=== PATIENT | male | born 1940 | race Caucasian/White ===

== ENCOUNTER 2019-03-31 07:20 | Inpatient (IN) | payer MEDICARE, OTHER ==
[~2019-03-31] VITALS: Ht 172.7 cm; Wt 99.9 kg
[~2019-03-31 07:20] MED LIST: AMLO5 PO; Avodart0.5 MG; CELE200 PO; CLOB.05TC TOP; DOXA2 PO; DOXA4 PO; DUTA.5 PO; ESCI10 PO; HYDR1TAB94 PO; LORA.5 PO; Lisinopril2.5 MG; NYSTRITC TOP; OMEP20ER PO; Percocet 5-3251 EACH PO
[2019-03-31 08:02] LABS: BASOPHILS ABSOLUTE AUTO 0.04 K/mm3 (0.00-0.23); BASOPHILS PERCENT AUTO 0 % (0-2); EOSINOPHILS PERCENT AUTO 0 % (0-6); Hematocrit 32.9 % (37.0-53.0); Hemoglobin 11.9 g/dL (13.5-17.5); IMMATURE GRAN ABSOLUTE AUTO 0.03 K/mm3 (0.00-0.10); IMMATURE GRAN PERCENT AUTO 0 % (0-1); LYMPHOCYTES ABSOLUTE AUTO 0.87 K/mm3 (0.84-5.20); LYMPHOCYTES PERCENT AUTO 9 % (21-46); MONOCYTES PERCENT AUTO 7 % (4-13); Mean Corpuscular HGB 34.1 pg (26.0-34.0); Mean Corpuscular HGB Conc 36.2 g/dL (31.5-36.5); Mean Corpuscular Volume 94 fL (80-100); Mean Platelet Volume 9.3 fL (9.1-12.4); NEUTROPHILS ABSOLUTE AUTO 8.39 K/mm3 (1.96-9.15); NEUTROPHILS PERCENT AUTO 84 % (41-73); Platelet Count 192 K/mm3 (150-400); RDW Coefficient Variation 11.9 % (11.7-14.2); RDW Standard Deviation 41.1 fL (35.1-46.3); Red Blood Cell Count 3.49 M/mm3 (4.30-5.90); White Blood Cell Count 10.03 K/mm3 (4.00-11.30)
[2019-03-31 08:20] LABS: Source, Urine Clean Catch
[2019-03-31 08:24] LABS: Bilirubin, Urine Neg (Neg); Blood, Urine Neg (Neg); Glucose Qualitative, Urine Neg (Neg); Ketones, Urine 4+ (Neg); Leukocyte Esterase, Urine Neg (Neg); Nitrite, Urine Neg (Neg); Protein, Urine 1+ (Neg); Urobilinogen, Urine NORM (Normal)
[2019-03-31 08:25] LABS: Ethanol (Alcohol), Blood, Med <3 mg/dL
[2019-03-31 08:25] LABS: Appearance, Urine Clear (Clear); Color, Urine Yellow (P-Yellow)
[2019-03-31 08:27] LABS: Alanine Aminotransfer (ALT/SGP 67 U/L (12-78); Albumin/Globulin Ratio 1.2 (0.8-1.8); Alk Phos 63 U/L (50-136); Anion Gap 17 mmol/L (6-16); Aspartate Aminotrans (AST/SGOT 98 U/L (12-37); Bilirubin, Total 1.2 mg/dL (0.1-1.0); Blood Urea Nitrogen 18 mg/dL (8-24); Bun/Creatinine Ratio 20.4 (12.0-20.0); CO2, Blood 16 mmol/L (21-32); Calcium, Blood 8.3 mg/dL (8.5-10.1); Chloride, Blood 90 mmol/L (98-108); Creatinine, Blood 0.88 mg/dL (0.60-1.20); Globulin, Blood 3.3 g/dL (2.2-4.0); Glomerular Filtration Rate >60 (60-); Glucose, Blood 169 mg/dL (70-99); Potassium, Blood 4.3 mmol/L (3.5-5.5); Sodium, Blood 123 mmol/L (136-145); Total Protein, Blood 7.3 g/dL (6.4-8.2)
[2019-03-31 08:37] LABS: U Amphetamine Screen Not Detected; U Barbituate Screen Not Detected; U Benzodiazapine Screen DETECTED; U Buprenorphine Screen Not Detected; U Cannabinoids Screen Not Detected; U Cocaine Screen Not Detected; U Methadone Screen Not Detected; U Methamphetamine Screen Not Detected; U Opiates Screen Not Detected; U Oxycodone Screen Not Detected; U Phencyclidine Screen Not Detected; U Propoxyphene Screen Not Detected
[2019-03-31] MEDS ORDERED: PRINIVIL10 MG PO (08:49)
[2019-03-31 09:21] LABS: Bicarbonate Venous 21.4 mmol/L (24.0-30.0); PCO2 Venous 18.4 mmHg (38-42); PO2 Venous 147 mmHg (38-42); pH Blood Venous 7.56 (7.34-7.37)
[2019-03-31 09:47] LABS: Creatine Kinase MB 43.9 ng/mL (0.0-3.6)
[2019-03-31 09:57] LABS: Creatine Kinase MB Index 1.6 (0.0-4.0)
--- NOTE | 2019-03-31 13:51 | NUR ---
BP PT C/O SHAKING, CIWA SCORE 12, MEDICATED WITH ATIVAN PER ORDERS. BP 193/84, OTHER VSS.
--- NOTE | 2019-03-31 14:45 | NUR ---
PATIENT ADMITTED TO ICU 8 APPROX 1205 AFTER REPORT FROM FIONA ANGULO OF ED. C/O PAIN IN HIS NECK AND HAD CERVICAL SURGERY IN THE PAST. A&O, BUT SOME TREMORS NOTED. HIS ASSISTED WITH MEDICAL HISTORY. HYPERTENSIVE (SEE VITAL SIGNS). WELL ETOH USE, PATIENT TAKES ATIVAN BID AND ANTIDEPRESSENTS. LIBRIUM GIVEN PRIOR TO STARTING PRECEDEX. WORSENING TREMORS. ATIVAN GIVEN AND PRECEDEX STARTED AT 0.3 MCG/KG/HR AND TITRATED TO 0.7 MCG/KG/HR. PATIENT IS SLEEPING NOW. WILL BRING HOME CPAP IN
--- NOTE | 2019-03-31 15:45 | NUR ---
MD VISIT DR. MONTERO IN
[2019-03-31 17:02] LABS: Albumin, Blood 3.4 g/dL (3.4-5.0); Anion Gap 9 mmol/L (6-16); Blood Urea Nitrogen 16 mg/dL (8-24); CO2, Blood 23 mmol/L (21-32); Calcium, Blood 7.9 mg/dL (8.5-10.1); Chloride, Blood 93 mmol/L (98-108); Creatinine, Blood 0.89 mg/dL (0.60-1.20); Glomerular Filtration Rate >60 (60-); Glucose, Blood 139 mg/dL (70-99); Phosphorus, Blood 3.1 mg/dL (2.5-4.9); Potassium, Blood 3.8 mmol/L (3.5-5.5); Sodium, Blood 125 mmol/L (136-145)
--- NOTE | 2019-03-31 18:12 | NUR ---
BROUGHT IN HOME CPAP. RT NOTIFIED TO CHECK IT OUT FOR HOSPITAL USE.
--- NOTE | 2019-03-31 20:03 | NUR ---
ASSUMED CARE RECIEVED REPORT FROM BRADY JAIMES. PT IS ASLEEP, WITH OCCASIONAL SNORES AND IS HAVING SANDY. PT WILL BE PLACED ON CPAP. PT IS RECEIVING PRECEDEX 0.7MCG/KG/HGR AND NS AT 100ML/HR. URINAL AT BEDSIDE. WARM TOWELL AND K PAD UNDER NECK FOR CHRONIC PAIN. PT IS HYPERTENSIVE AND SLIGHLTY BRADYCARDIC BUT IS ASYMPTOMATIC. BED ALARM IS ON. NO FAMILY/VISITORS AT BEDSIE. BED IS LOW AND LOCKED, CALL LIGHT WITHIN REACH.
--- NOTE | 2019-04-01 02:50 | NUR ---
UPDATE PT AWAKE AT ~0200 NEEDING TO USE BEDSIDE COMMODE. PT HAD A SOILED GREEN SHEET AND HAD A DIARRHEAL STOOL. PT WAS ABLE TO TAKE A LIBRIUM, WHILE PRECEDEX REMAINS ON STANDBY. PT HAD A CIWA AROUND 2-3 DUE TO TREMORS IN THE UPPER EXTREMETIES. OTHERWISE PT IS NOT PRESENTING WITH MODERATE OR SEVERE SIGNS OF ETOH W/D. PT STATES PAIN IS RELIEVED WITH HEAT THERAPY. PT NOW HAS CPAP ON IS CURRENTLY BACK TO SLEEP. BED LOW AND LOCKED. CALL LIGHT WITHING REACH.
[2019-04-01 03:57] LABS: BASOPHILS ABSOLUTE AUTO 0.01 K/mm3 (0.00-0.23); BASOPHILS PERCENT AUTO 0 % (0-2); EOSINOPHILS ABSOLUTE AUTO 0.08 K/mm3 (0.00-0.68); EOSINOPHILS PERCENT AUTO 2 % (0-6); Hematocrit 31.6 % (37.0-53.0); Hemoglobin 11.2 g/dL (13.5-17.5); IMMATURE GRAN ABSOLUTE AUTO 0.01 K/mm3 (0.00-0.10); IMMATURE GRAN PERCENT AUTO 0 % (0-1); LYMPHOCYTES ABSOLUTE AUTO 1.17 K/mm3 (0.84-5.20); LYMPHOCYTES PERCENT AUTO 23 % (21-46); MONOCYTES ABSOLUTE AUTO 0.44 K/mm3 (0.16-1.47); MONOCYTES PERCENT AUTO 9 % (4-13); Mean Corpuscular HGB 34.6 pg (26.0-34.0); Mean Corpuscular HGB Conc 35.4 g/dL (31.5-36.5); Mean Platelet Volume 9.5 fL (9.1-12.4); NEUTROPHILS ABSOLUTE AUTO 3.31 K/mm3 (1.96-9.15); NEUTROPHILS PERCENT AUTO 66 % (41-73); Platelet Count 153 K/mm3 (150-400); RDW Coefficient Variation 12.2 % (11.7-14.2); RDW Standard Deviation 44.2 fL (35.1-46.3); Red Blood Cell Count 3.24 M/mm3 (4.30-5.90); White Blood Cell Count 5.02 K/mm3 (4.00-11.30)
[2019-04-01 03:58] LABS: Mean Corpuscular Volume 98 fL (80-100)
[2019-04-01 04:21] LABS: Anion Gap 8 mmol/L (6-16); Blood Urea Nitrogen 14 mg/dL (8-24); CO2, Blood 21 mmol/L (21-32); Calcium, Blood 7.8 mg/dL (8.5-10.1); Chloride, Blood 102 mmol/L (98-108); Creatinine, Blood 0.93 mg/dL (0.60-1.20); Glomerular Filtration Rate >60 (60-); Glucose, Blood 150 mg/dL (70-99); Potassium, Blood 3.8 mmol/L (3.5-5.5); Sodium, Blood 131 mmol/L (136-145)
[2019-04-01 04:36] LABS: CPK Creatine Kinase 1794 U/L (39-308)
--- NOTE | 2019-04-01 06:21 | NUR ---
SHIFT SUMMARY PT SLEPT FOR MAJORITY OF NIGHT; GOT UP TWICE FOR THE BATHROOM. PRECEDEX GTTP WAS TITRATED OFF, AND LIBRIUM WAS TAKEN WHEN HE WAS AWAKE. PT SWALLOWING FINE. PT DID NOT COMPLAIN ABOUT ANY PAIN ALL NIGHT, STATED THAT THE HEATED TOWELL AND K-PAD WORKED REALLY WELL. PT DENIED: NAUSEA, HEADACHE, ANXIETY, AND HALLUCINATIONS; PT ALSO WAS CALM AND COOPERATIVE WHEN AWAKE, SLIGHTLY DIAPHORETIC IN THE PALMS, ALERT AND ORIENTED X4, AND WAS TREMULOUS. CIWA OF 4 AROUND ~0200, PRECEDEX HAD BEEN TURNED OFF SO LIBRIUM WAS GIVEN. 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 HR HAD BEEN TRENDING DOWNWARD SINCE ADMISSION TO THE ICU; STARTED IN THE 80-LOW 90'S. CURRENTLY MID - HIGH 40'S. HR JUMPED BACK UP TO 50-60'S WHEN AWAKE. PT'S BP TRENDED DOWNWARD POST LISINOPRIL INTO A UPPER END OF NORMAL LEVEL. PT HAD A MODERATE DIARRHEAL STOOL WITH 900+UOP (900 + WHAT WAS IN THE STOOL). PT ON CPAP ALL NIGHT, TOLERATING IT WELL. BED IS LOW AND LOCKED. CALL LIGHT WITHIN REACH. NO FAMILY PRESENT OR PLACED A CALL.
--- NOTE | 2019-04-01 07:41 | NUR ---
ASSUMED CARE AT 0715 REPORT FROM FIONA URBINA. ASSISTED PATIENT TO BSC. UNMEASURED VOID AND EXPLOSIVE LIQUID STOOL. BATH AND LINEN CHANGED PROVIDED. OOB TO CHAIR FOR BREAKFAST. LIBRIUM GIVEN FOR CIWA 1-2 (TREMORS).
--- NOTE | 2019-04-01 07:46 | NUR ---
MD VISIT DR. MONTERO IN. STATUS WILL CHANGE TO PCU.
--- NOTE | 2019-04-01 12:17 | NUR ---
PATIENT REPORTS HE SUFFERS FROM IBS.
--- NOTE | 2019-04-01 13:05 | NUR ---
LIBRIUM GIVEN REQUESTED FOR TREMORS
--- NOTE | 2019-04-01 13:43 | NUR ---
PATIENT OOB FOR LUNCH AND BACK TO BED AFTER LIBRIUM WITH CPAP MASK ON FOR NAP.
--- NOTE | 2019-04-01 14:17 | NUR ---
REPORT TO FIONA TIM. PATIENT ASSISTED TO THE TOILET. WILL TX IN WC TO PCU 11 WITH MELISSA PEREZ
[2019-04-01 14:34] LABS: Adenovirus F 40/41 Not Detected (NOT DETECT); Astrovirus Not Detected (NOT DETECT); Campylobacter Sp Not Detected (NOT DETECT); Cryptosporidium Not Detected (NOT DETECT); Cyclospora Cayetanensis Not Detected (NOT DETECT); E. Coli O157 Not Detected (NOT DETECT); Entamoeba Histolytica Not Detected (NOT DETECT); Enteroaggregative E. coli-EAEC Not Detected (NOT DETECT); Enteropathogenic E. coli-EPEC Not Detected (NOT DETECT); Enterotoxigenic E. coli-ETEC Not Detected (NOT DETECT); Giardia Lamblia Not Detected (NOT DETECT); Norovirus GI/GII Not Detected (NOT DETECT); Plesiomonas Shigelloides Not Detected (NOT DETECT); Salmonella Sp Not Detected (NOT DETECT); Shiga Toxin-prod E. coli-STEC Not Detected (NOT DETECT); Shigella/Enteroin E. coli-EIEC Not Detected (NOT DETECT); Vibrio Cholerae Not Detected (NOT DETECT); Vibrio Sp Not Detected (NOT DETECT); Yersinia Enterocolitica Not Detected (NOT DETECT)
[2019-04-01 14:35] LABS: Rotavirus A Not Detected (NOT DETECT); Sapovirus Not Detected (NOT DETECT)
--- NOTE | 2019-04-01 18:01 | NUR ---
SHIFT SUMMARY. NO ACUTE CHANGES NOTED SINCE PT ARRIVED ON UNIT 1422. PT IS A&Ox4 AND SBA/IND IN THE ROOM. PT HAS CIWA PROTOCOL. PT HAS BEEN MEDICATED FOR PAIN AND CWIA PER EMAR/PROTOCOL. PT'S VS HAVE BEEN STABLE. NO EVENTS NOTED ON TELE. PT DENIES ANY CHEST PAIN/PRESSURE, N/V OR SOB. CALL LIGHT IN REACH, BED IS LOCKED AND LOW WILL CONTINUE TO MONITOR UNTIL REPORT IS GIVEN TO ONCOMING RN.
[2019-04-02 03:36] LABS: BASOPHILS ABSOLUTE AUTO 0.02 K/mm3 (0.00-0.23); BASOPHILS PERCENT AUTO 1 % (0-2); EOSINOPHILS PERCENT AUTO 2 % (0-6); Hematocrit 33.2 % (37.0-53.0); Hemoglobin 11.3 g/dL (13.5-17.5); IMMATURE GRAN ABSOLUTE AUTO 0.02 K/mm3 (0.00-0.10); IMMATURE GRAN PERCENT AUTO 1 % (0-1); LYMPHOCYTES ABSOLUTE AUTO 1.06 K/mm3 (0.84-5.20); LYMPHOCYTES PERCENT AUTO 25 % (21-46); MONOCYTES ABSOLUTE AUTO 0.42 K/mm3 (0.16-1.47); MONOCYTES PERCENT AUTO 10 % (4-13); Mean Corpuscular HGB 34.1 pg (26.0-34.0); Mean Corpuscular Volume 100 fL (80-100); Mean Platelet Volume 9.7 fL (9.1-12.4); NEUTROPHILS ABSOLUTE AUTO 2.58 K/mm3 (1.96-9.15); NEUTROPHILS PERCENT AUTO 61 % (41-73); Platelet Count 156 K/mm3 (150-400); RDW Coefficient Variation 12.5 % (11.7-14.2); RDW Standard Deviation 46.5 fL (35.1-46.3); Red Blood Cell Count 3.31 M/mm3 (4.30-5.90)
[2019-04-02 03:58] LABS: Albumin, Blood 3.2 g/dL (3.4-5.0); Anion Gap 6 mmol/L (6-16); Blood Urea Nitrogen 10 mg/dL (8-24); Bun/Creatinine Ratio 10.8 (12.0-20.0); CO2, Blood 25 mmol/L (21-32); Calcium, Blood 8.1 mg/dL (8.5-10.1); Chloride, Blood 107 mmol/L (98-108); Creatinine, Blood 0.92 mg/dL (0.60-1.20); Glomerular Filtration Rate >60 (60-); Glucose, Blood 140 mg/dL (70-99); Phosphorus, Blood 2.7 mg/dL (2.5-4.9); Potassium, Blood 4.3 mmol/L (3.5-5.5); Sodium, Blood 138 mmol/L (136-145)
[2019-04-02 04:06] LABS: CPK Creatine Kinase 1096 U/L (39-308)
--- NOTE | 2019-04-02 06:08 | NUR ---
SHIFT SUMMARY PT HAS REMAINED AOX4 THROUHGOUT SHIFT. VSS. PLEASANT AND COOPERATIVE WITH CARE. PT CONTINUES TO AMBULATE WITH STANDBY ASSIST TO RESTROOM WITHOUT DIFFICULTY. O2 SATS HAVE REMAINED >90% ON RA OR HOME ON HOME CPAP WHILE SLEEPING. PT HAS RESTED WELL THROUGHOUT THE NIGHT. MEDICATED FOR PAIN THAT DECREASES WITH ORDERED MEDICATIONS AND HEAT THERAPY ORDERED. INITIAL CIWA OF 9 LAST EVENING, PT MEDICATED FOR CIWA WITH GOOD RESULTS FROM MEDICATION. LAST NOTED CIWA OF 4 WHILE RESTING. NS CONTINUES TO INFUSE @ 100 ML/HR. NO OTHER CHANGES NOTED FROM INITIAL ASSESSMENT. WILL CONTINUE TO MONITOR AND REPORT TO ONCOMING SHIFT RN. BED IN LOW POSITION, CALL LIGHT IN REACH.
--- NOTE | 2019-04-02 09:36 | NUR ---
0705-ASSUMED CARE OF PT. PT IS ALERT AND ORIENTED. PT IS SITTING AT THE SIDE OF THE BED AT THIS TIME DRINKING HIS COFFEE. DENIES PAIN. 8031-PT WENT LAID BACK IN BED AT THIS TIME. DECREASED IV FLUIDS TO 50ML/HR ORDERED.
--- NOTE | 2019-04-02 16:12 | NUR ---
PT STATED " I HAVE NOT PUSHED THIS, BUT I REALLY WANT TO GO HOME. THERE'S NOTHING I AM DOING HERE THAT I CAN'T DO AT HOME." EXPLAINED TO PATIENT THAT IF HE INSIST ON GOING HOME, HE WILL GO HOME AGAINST MEDICAL ADVICE. ENCOURAGED PT TO STAY ANOTHER NIGHT. PT STATED THAT HE WILL STAY ANOTHER NIGHT BUT HE IS "GOING HOME TOMORROW." THIS INFORMATION WAS RELAYED TO DR. MONTERO, ORDERS RECEIVED TO TRANSFER PT TO MEDICAL FLOOR. SHE WAS ALSO NOTIFIED OF PT'S CIWA SCORE OF 2.
--- NOTE | 2019-04-02 19:25 | NUR ---
shift Summary: Pt is alert and oriented. Received to doses of librium, with CIWA score @ 2 the entire shift. Afebrile, eager to go home. Still on NS @ 50ml/hr.
--- NOTE | 2019-04-02 20:50 | NUR ---
CARE ASSUMPTION PT A&O X4. VSS. PT STATES BASELINE ANXIETY AND HAVING BEEN TAKING HIGH DOSES OF TYLENOL AND DRINKING "MORE THAN I SHOULD HAVE" TO MANAGE BACK AND NECK PAIN AT HOME. PT STATES UNDERSTANDING OF NEED FOR ALTERNATIVE PAIN RELIEF MEASURES. TIME SPENT DISCUSSING W/ PT ALTERNATIVE PAIN MANAGEMENT APPROACHES. PT SITTING UP AT EDGE OF BED, CIWA "0" AT THIS TIME. PT REPORTS BACK/NECK PAIN 4/10 AT THIS TIME. WILL CONTINUE TO MONITOR AND PROVIDE CARE.
[2019-04-03 03:59] LABS: BASOPHILS ABSOLUTE AUTO 0.03 K/mm3 (0.00-0.23); BASOPHILS PERCENT AUTO 1 % (0-2); EOSINOPHILS ABSOLUTE AUTO 0.15 K/mm3 (0.00-0.68); EOSINOPHILS PERCENT AUTO 4 % (0-6); Hematocrit 33.5 % (37.0-53.0); Hemoglobin 11.5 g/dL (13.5-17.5); IMMATURE GRAN ABSOLUTE AUTO 0.01 K/mm3 (0.00-0.10); IMMATURE GRAN PERCENT AUTO 0 % (0-1); LYMPHOCYTES ABSOLUTE AUTO 1.18 K/mm3 (0.84-5.20); LYMPHOCYTES PERCENT AUTO 29 % (21-46); MONOCYTES ABSOLUTE AUTO 0.47 K/mm3 (0.16-1.47); MONOCYTES PERCENT AUTO 11 % (4-13); Mean Corpuscular HGB 34.3 pg (26.0-34.0); Mean Corpuscular HGB Conc 34.3 g/dL (31.5-36.5); Mean Corpuscular Volume 100 fL (80-100); Mean Platelet Volume 9.7 fL (9.1-12.4); NEUTROPHILS PERCENT AUTO 56 % (41-73); Platelet Count 172 K/mm3 (150-400); RDW Coefficient Variation 12.4 % (11.7-14.2); RDW Standard Deviation 45.6 fL (35.1-46.3); Red Blood Cell Count 3.35 M/mm3 (4.30-5.90); White Blood Cell Count 4.14 K/mm3 (4.00-11.30)
[2019-04-03 04:24] LABS: Albumin, Blood 3.3 g/dL (3.4-5.0); Anion Gap 7 mmol/L (6-16); Blood Urea Nitrogen 9 mg/dL (8-24); Bun/Creatinine Ratio 10.8 (12.0-20.0); CO2, Blood 25 mmol/L (21-32); CPK Creatine Kinase 525 U/L (39-308); Calcium, Blood 8.6 mg/dL (8.5-10.1); Chloride, Blood 106 mmol/L (98-108); Creatinine, Blood 0.84 mg/dL (0.60-1.20); Glomerular Filtration Rate >60 (60-); Glucose, Blood 158 mg/dL (70-99); Phosphorus, Blood 3.6 mg/dL (2.5-4.9); Sodium, Blood 138 mmol/L (136-145)
--- NOTE | 2019-04-03 06:43 | NUR ---
SHIFT SUMMARY PT A&O X4, CALM AND COOPERATIVE W/ NO ANXIETY T/O SHIFT. PT REPORTS CHRONIC BACK AND NECK PAIN BEING "MILD" AND DENYING NEED FOR PAIN MEDICATION T/O SHIFT. PT CIWA REMAINS "0" T/O SHIFT. NO MEDICATION NEEDED. LUNG SOUNDS CLEAR, SPO2 > 92% ON RA OR HOME CPAP WHILE SLEEPING. PT AWAITING BED ON MEDICAL FLOOR OR POTENTIAL DISCHARGE HOME. WILL CONTINUE TO MONITOR AND PROVIDE CARE UNTIL REPORT OFF TO DAY SHIFT RN.
--- NOTE | 2019-04-03 08:12 | NUR ---
ASSUMED CARE PT ALERT AND ORIENTED. VS STABLE. PT DENIES ANY PAIN AT THIS TIME. DR. MONTERO IN THIS AM WITH PLANS FOR DISCHARGE. AWAITING ORDERS. PT NOTIFIED. WILL CONTINUE TO MONITOR.
--- NOTE | 2019-04-03 09:00 | NUR ---
DISCHARGE INSTRUCTIONS PROVIDED. ALL QUESTIONS ANSWERED. PT TAKEN OUT BY WHEELCHAIR.
== END 2019-04-03 09:06 | disposition home or self-care (01) | DRG 897 ==
LOC: ER 07:20 → ICUW 10:42 → ICUE 12:07 → PCU 04-01 14:22
PROVIDERS: Emergency Medicine; ADMIT Family Medicine
DX: F10.239 Alcohol dependence with withdrawal, unspecified (principal); M62.82 Rhabdomyolysis; E87.1 Hypo-osmolality and hyponatremia; E87.2 Acidosis; E83.42 Hypomagnesemia; D63.8 Anemia in other chronic diseases classified elsewhere; E86.0 Dehydration; G89.29 Other chronic pain; M54.2 Cervicalgia; I10 Essential (primary) hypertension; G47.30 Sleep apnea, unspecified; F32.9 Major depressive disorder, single episode, unspecified; Z88.2 Allergy status to sulfonamides; Z88.8 Allergy status to other drugs, medicaments and biological substances; Z91.040 Latex allergy status; Z79.899 Other long term (current) drug therapy; Z87.891 Personal history of nicotine dependence
CPT/HCPCS: 0097U; 36415; 71045; 80048; 80053; 80069; 82550; 82553; 82803; 82947; 83605; 83735; 84484; 85025; 93005; 93010; 96365; 96366; 96375; 96376; 99285-25; A9270-GY; G0480; J0360; J1650; J1885; J2060; J3010; J3411; J3475; J7030

== ENCOUNTER → 2021-02-23 | Outpatient (CLI) | payer MEDICARE, OTHER ==
[~2021-02-23] MED LIST changes: +PRINIVIL10 MG PO
== END | disposition home or self-care (01) ==
LOC: LAB 08:18 → LAB SHORT 08:18
DX: L72.8 Other follicular cysts of the skin and subcutaneous tissue (principal)
CPT/HCPCS: 88304

== ENCOUNTER → 2021-05-11 | Outpatient (CLI) | payer MEDICARE, OTHER | END | disposition home or self-care (01) | LOC: LAB SHORT 08:12 | DX: L11.0 Acquired keratosis follicularis (principal) | CPT/HCPCS: 88305 ==

== ENCOUNTER → 2022-01-10 | Outpatient (CLI) | payer MEDICARE, OTHER | LOC: LAB SHORT 11:07 | DX: L57.0 Actinic keratosis (principal) | CPT/HCPCS: 88305 ==

== ENCOUNTER → 2023-12-19 | Outpatient (CLI) | payer MEDICARE, OTHER | END | disposition home or self-care (01) | LOC: LAB EV 15:19 → LAB SHORT 15:19 | DX: L72.0 Epidermal cyst (principal) | CPT/HCPCS: 88304 ==